=== PATIENT | male | born 1970 | race Two or more races ===

== ENCOUNTER → 2021-04-27 | Emergency (ER) | payer SELFPAY ==
[~2021-04-27] VITALS: Ht 172.7 cm; Wt 68.0 kg
[~2021-04-27] MED LIST: CEFTRIAXONE 1 G VIAL IM ONE; CEFTRIAXONE 1 G VIAL ONE; CEPH500C2 PO; LIDOCAINE /MPF 1% VIAL 5 ML VIAL ONE; LIDOCAINE 0.5%-EPI 1:200,000 50 ML VIAL ONE; LIDOCAINE 1%-EPI 1:100,000 20 ML VIAL TP ONE; LIDOCAINE 2%-EPI 1:100,000 30 ML VIAL ONE; SODIUM BICARBONATE 5 ML VIAL MC ONE; SODIUM BICARBONATE 5 ML VIAL ONE; TDAP [DIPH/PERTUSSIS/TET] 0.5 ML VIAL IM ONE
--- NOTE | 2021-04-27 02:37 | NUR ---
PATIENT BIB BROTHER FOR LEFT POSTERIOR BROUSSARD LACERATION. +ETOH , CAN NOT RECALL THE SOURCE OF INJURY. UNKNOWN TDAP. PATIENT A/O X 4, RR EVEN AND UNLABORED, NO SIGNS OF SOB NOTED. PATIENT VSS. WILL CONTINUE TO MONITOR.
[2021-04-27 03:42] VITALS: BP 116/62
--- NOTE | 2021-04-27 03:43 | NUR ---
Patient discharged to home in stable condition. RX and Written and verbal after care instructions given. Patient verbalizes understanding of instruction.
== END | disposition home or self-care (01) ==
LOC: ER 02:27
DX: S81.812A Laceration without foreign body, left lower leg, initial encounter (principal); W45.8XXA Other foreign body or object entering through skin, initial encounter; Y93.89 Activity, other specified; Y92.89 Other specified places as the place of occurrence of the external cause; Y99.8 Other external cause status
CPT/HCPCS: 12002; 73590; 90471; 90715; 96372; 99284; J0696; J3490 ×4